=== PATIENT | male | born 1960 ===

== ENCOUNTER 2025-10-16 11:00 | Day surgery (SDC) | payer OTHER ==
[2025-10-09 12:16] VITALS: BP 148/88
[~2025-10-16] VITALS: Ht 172.7 cm; Wt 72.6 kg
[~2025-10-16 11:00] MED LIST: CLONAZEPAM0.5 MG PO; RESTORIL30 M1 PO; TAMS0.4C PO; ZOCOR20 MG PO; ZOLOFT100 MG PO
[2025-10-16] MEDS ORDERED: CEFTRIAXONE SODIUM 2,000 MG VIAL ONE (13:04)
[2025-10-16] MEDS ORDERED: METRONIDAZOLE/SODIUM CHLORIDE 500 MG/100 ML PIGGYBACK IV ONE (13:05)
[2025-10-16] MEDS ORDERED: BUPIVACAINE HCL/MPF 0.5% 30ML VIAL ONE (13:27)
[2025-10-16] MEDS ORDERED: DIBUCAINE 30 GM TUBE ONE (13:27)
[2025-10-16] MEDS ORDERED: HEMOSTATIC MATRIX 1 KIT KIT TOP ONE (13:27)
[2025-10-16] MEDS ORDERED: POVIDONE-IODINE 118 ML BOTT TOP ONE (13:27)
[2025-10-16] MEDS ORDERED: LIDOCAINE HCL 1%/EPINEPHRINE 20ML VIAL IJ ONE (13:27)
[2025-10-16] MEDS ORDERED: PERCOCET 5-3251 EACH PO (15:53)
[2025-10-16] MEDS ORDERED: RECTICARE30 GM TOP (15:54)
== END 2025-10-16 20:50 | disposition home or self-care (01) ==
LOC: CIR.AMB 11:00
PROVIDERS: ATTEND Surgery
DX: K60.322 Anal fistula, complex, persistent (principal)